=== PATIENT | female | born 1950 | race Caucasian/White ===

== ENCOUNTER → 2021-10-06 | Outpatient (CLI) | payer BC, OTHER ==
[2021-10-06 12:39] LABS: BASO # 0.1 10^3/uL (0.0-0.2); BASO % 1.1 % (0.0-1.0); EOS # 0.2 10^3/uL (0.0-0.5); EOS % 3.2 % (0.0-3.0); HEMATOCRIT 42.2 % (36.0-47.0); HEMOGLOBIN 13.2 g/dl (12.0-15.5); LYMPH # 1.7 10^3/uL (1.5-5.0); LYMPH % 29.6 % (24.0-44.0); MEAN CORPUSCULAR HEMOGLOBIN 28.9 pg (27.0-33.0); MEAN CORPUSCULAR HGB CONC 31.3 g/dl (32.0-36.5); MEAN CORPUSCULAR VOLUME 92.3 fl (80.0-96.0); MONO # 0.6 10^3/uL (0.0-0.8); NEUTROPHILS # 3.1 10^3/uL (1.5-8.5); NEUTROPHILS % 54.7 % (36.0-66.0); PLATELET COUNT, AUTOMATED 258 10^3/uL (150-450); RED BLOOD COUNT 4.57 10^6/uL (4.00-5.40); WHITE BLOOD COUNT 5.6 10^3/uL (4.0-10.0)
[2021-10-06 13:07] LABS: BLOOD UREA NITROGEN 17 MG/DL (7-18); CALCIUM LEVEL 9.7 MG/DL (8.8-10.2); CARBON DIOXIDE LEVEL 30 MEQ/L (21-32); CHLORIDE LEVEL 107 MEQ/L (98-107); CREATININE FOR GFR 0.46 MG/DL (0.55-1.30); GLOMERULAR FILTRATION RATE > 60.0 (>39); GLUCOSE, FASTING 91 MG/DL (70-100); POTASSIUM SERUM 3.9 MEQ/L (3.5-5.1); SODIUM LEVEL 143 MEQ/L (136-145)
== END ==
LOC: M WUC 09:10
PROVIDERS: ATTEND Podiatrist
DX: M20.12 Hallux valgus (acquired), left foot (principal); M79.672 Pain in left foot

== ENCOUNTER → 2021-10-25 | Outpatient (CLI) | payer MEDICARE, BC, OTHER ==
[~2021-10-25] MED LIST: ACET-907 PO; ATEN25TA PO; CALCCAP4 PO; EQL50TAB2 PO; HYDR-3490 PO; IBUP200C28 PO; MAGN400C2 PO; OCUV1CAP4 PO; VITA-243 PO; VITA100093 PO; VITMTA PO
== END ==
LOC: M LABSMTC 11:05
PROVIDERS: ATTEND Anesthesiology
DX: Z01.818 Encounter for other preprocedural examination (principal); Z11.52 Encounter for screening for COVID-19

== ENCOUNTER 2021-10-29 05:59 | Day surgery (SDC) | payer MEDICARE, BC, OTHER ==
[~2021-10-29] VITALS: Ht 167.6 cm; Wt 78.9 kg
[~2021-10-29 05:59] MED LIST changes: -ACET-907 PO
[2021-10-29] MEDS ORDERED: ceFAZolin SOD 2 GM in IV 1 EA IV ONE (06:00)
[2021-10-29] MEDS ORDERED: INSULIN LISPRO (NovoLOG) PER UNIT SC PRN (06:45)
[2021-10-29] MEDS ORDERED: LR 1,000 ML IV SCH (06:45)
[2021-10-29] MEDS ORDERED: propofoL 200 MG/20 ML VIAL As Ordered ONE ×5 (07:15→10:28)
[2021-10-29] MEDS ORDERED: fentaNYL 100 MCG/2 ML INJECTION As Ordered ONE (07:15)
[2021-10-29] MEDS ORDERED: BUPIVACAINE HCL 0.5% 30ML VIAL As Ordered ONE (07:15)
[2021-10-29] MEDS ORDERED: LIDOCAINE 2% MDV 20ML VIAL As Ordered ONE (07:15)
[2021-10-29] MEDS ORDERED: dexameTHASONE 4 MG/ML 1ML VIAL (J1100 PER 1MG) As Ordered ONE (07:15)
[2021-10-29] MEDS ORDERED: LIDOCAINE 2% 100MG/5ML SDV (FOR ANES.) As Ordered ONE (07:15)
[2021-10-29] MEDS ORDERED: GENTAMICIN SULF 80MG/2ML VIAL As Ordered ONE (07:15)
[2021-10-29] MEDS ORDERED: MIDAZOLAM INJ 2MG/2ML VIAL (J2250 PER 1MG) As Ordered ONE (07:15)
[2021-10-29] MEDS ORDERED: ONDANSETRON 4MG/2ML VIAL As Ordered ONE (07:15)
[2021-10-29] MEDS ORDERED: ACETAMINOPHEN 1000MG 100ML IV BTL (OFIRMEV) (J0131 PER 10MG) As Ordered ONE (07:50)
[2021-10-29] MEDS ORDERED: LIDOCAINE 1% SDV 30ML VIAL As Ordered ONE (08:00)
[2021-10-29] MEDS ORDERED: ePHEDrine SULFATE 25 MG/5 ML(5MG/ML) SYRINGE As Ordered ONE (08:12)
[2021-10-29] MEDS ORDERED: KETOROLAC 60MG 2ML VIAL As Ordered ONE (09:00)
[2021-10-29 12:28] VITALS: BP 140/66
[2021-11-09] MEDS ORDERED: ACET-907 PO (07:47)
== END 2021-10-29 12:50 | disposition home or self-care (01) ==
LOC: M SDC 05:59
PROVIDERS: ATTEND Podiatrist
DX: M20.12 Hallux valgus (acquired), left foot (principal); M79.672 Pain in left foot; I10 Essential (primary) hypertension; K21.9 Gastro-esophageal reflux disease without esophagitis; Z79.899 Other long term (current) drug therapy; Z91.013 Allergy to seafood
CPT/HCPCS: 28298; 73630; 76000; C1713; C1762; J0131; J0690; J1100; J1580; J1885; J2250; J2405; J3010

== ENCOUNTER → 2021-11-08 | Outpatient (CLI) | payer MEDICARE, BC, OTHER ==
[~2021-11-08] MED LIST changes: +ACET-907 PO
== END ==
LOC: M LABSMTC 09:29
PROVIDERS: ATTEND Podiatrist
DX: Z01.818 Encounter for other preprocedural examination (principal); Z11.52 Encounter for screening for COVID-19

== ENCOUNTER 2021-11-12 07:10 | Day surgery (SDC) | payer MEDICARE, BC, OTHER ==
[~2021-11-12] VITALS: Ht 167.6 cm; Wt 78.5 kg
[~2021-11-12 07:10] MED LIST changes: +ceFAZolin SOD 2 GM in IV 1 EA IV ONE
[2021-11-12] MEDS ORDERED: LR 1,000 ML IV SCH ×2 (07:55→11:30)
[2021-11-12] MEDS ORDERED: LIDOCAINE 2% INJ 100 MG/5 ML SYRINGE As Ordered ONE (08:30)
[2021-11-12] MEDS ORDERED: ONDANSETRON 4MG 2ML VIAL As Ordered ONE ×2 (08:30→08:34)
[2021-11-12] MEDS ORDERED: LIDOCAINE 2% 100MG/5ML SDV (FOR ANES.) As Ordered ONE ×2 (08:30→08:34)
[2021-11-12] MEDS ORDERED: propofoL 200 MG/20 ML VIAL As Ordered ONE ×2 (08:30→08:34)
[2021-11-12] MEDS ORDERED: MIDAZOLAM INJ 2MG/2ML VIAL (J2250 PER 1MG) As Ordered ONE (08:30)
[2021-11-12] MEDS ORDERED: fentaNYL 100 MCG/2 ML INJECTION As Ordered ONE (08:30)
[2021-11-12] MEDS ORDERED: dexameTHASONE 4 MG/ML 1ML VIAL (J1100 PER 1MG) As Ordered ONE ×3 (08:30→08:59)
[2021-11-12] MEDS ORDERED: GENTAMICIN SULF 80MG/2ML VIAL As Ordered ONE (08:58)
[2021-11-12] MEDS ORDERED: LIDOCAINE PRES-FREE 2% 10ML AMP As Ordered ONE (08:58)
[2021-11-12] MEDS ORDERED: BUPIVACAINE HCL 0.5% 30ML VIAL As Ordered ONE (08:59)
[2021-11-12] MEDS ORDERED: ePHEDrine SULFATE 25 MG/5 ML(5MG/ML) SYRINGE As Ordered ONE (09:33)
[2021-11-12] MEDS ORDERED: ACETAMINOPHEN 1000MG 100ML IV BTL (OFIRMEV) (J0131 PER 10MG) As Ordered ONE (10:00)
[2021-11-12] MEDS ORDERED: METOCLOPRAMIDE INJ 10MG/2ML VIAL (J2765 PER 1) IV PRN (11:30)
[2021-11-12] MEDS ORDERED: ONDANSETRON 4MG 2ML VIAL IV PRN (11:30)
[2021-11-12] MEDS ORDERED: INSULIN LISPRO (NovoLOG) PER UNIT SC PRN (11:30)
[2021-11-12] MEDS ORDERED: oxyCODONE 5MG TAB PO PRN (11:30)
[2021-11-12 12:45] VITALS: BP 147/67
== END 2021-11-12 15:42 | disposition home or self-care (01) ==
LOC: M SDC 07:10
PROVIDERS: ATTEND Podiatrist
DX: T84.223A Displacement of internal fixation device of bones of foot and toes, initial encounter (principal); Y79.2 Prosthetic and other implants, materials and accessory orthopedic devices associated with adverse incidents; M79.672 Pain in left foot; M20.12 Hallux valgus (acquired), left foot; I10 Essential (primary) hypertension; K21.9 Gastro-esophageal reflux disease without esophagitis; K27.9 Peptic ulcer, site unspecified, unspecified as acute or chronic, without hemorrhage or perforation; Z79.899 Other long term (current) drug therapy; Z79.891 Long term (current) use of opiate analgesic; Z87.891 Personal history of nicotine dependence; J30.1 Allergic rhinitis due to pollen; Z91.013 Allergy to seafood
CPT/HCPCS: 20680; 28740; 73630; 76000; 88300; C1713; C1762; J0131; J0690; J1100; J1580; J2250; J2405; J3010

== ENCOUNTER 2022-09-16 09:32 | Day surgery (SDC) | payer MEDICARE, BC, OTHER ==
[~2022-09-16] VITALS: Ht 167.6 cm; Wt 79.9 kg
[2022-09-16] MEDS ORDERED: LR 1,000 ML IV SCH (09:40)
[2022-09-16] MEDS ORDERED: propofoL 200 MG/20 ML VIAL As Ordered ONE (09:53)
[2022-09-16] MEDS ORDERED: LIDOCAINE 2% 100MG/5ML SDV (FOR ANES.) As Ordered ONE (09:53)
[2022-09-16] MEDS ORDERED: KETOROLAC 60MG 2ML VIAL As Ordered ONE (09:54)
[2022-09-16] MEDS ORDERED: ONDANSETRON 4MG 2ML VIAL As Ordered ONE (09:54)
[2022-09-16] MEDS ORDERED: MIDAZOLAM INJ 2MG/2ML VIAL As Ordered ONE (10:02)
[2022-09-16] MEDS ORDERED: fentaNYL 100 MCG/2 ML INJECTION As Ordered ONE ×2 (10:02→12:57)
[2022-09-16] MEDS ORDERED: ACETAMINOPHEN 1000MG 100ML IV BAG As Ordered ONE (10:14)
[2022-09-16] MEDS ORDERED: BUPIVACAINE HCL 0.5% 30ML VIAL As Ordered ONE (10:17)
[2022-09-16] MEDS ORDERED: GENTAMICIN SULF 80MG/2ML VIAL As Ordered ONE (10:17)
[2022-09-16] MEDS ORDERED: LIDOCAINE 2% MDV 20ML VIAL As Ordered ONE (10:17)
[2022-09-16 14:10] VITALS: BP 133/63
== END 2022-09-16 14:26 | disposition home or self-care (01) ==
LOC: M SDC 09:32
PROVIDERS: ATTEND Podiatrist
DX: M20.11 Hallux valgus (acquired), right foot (principal); M21.6X1 Other acquired deformities of right foot; M20.41 Other hammer toe(s) (acquired), right foot; I10 Essential (primary) hypertension; J44.9 Chronic obstructive pulmonary disease, unspecified; M19.90 Unspecified osteoarthritis, unspecified site; Z91.013 Allergy to seafood; Z79.899 Other long term (current) drug therapy
CPT/HCPCS: 28285; 28296; 73630; 76000; 88300; 97161; C1713; J0131; J0690; J1100; J1580; J1885; J2250; J2405; J3010

== ENCOUNTER → 2022-12-15 | Outpatient (REF) | payer MEDICARE, BC, OTHER ==
[~2022-12-15] MED LIST changes: -ceFAZolin SOD 2 GM in IV 1 EA IV ONE
== END ==
LOC: M LAB REF 17:09
PROVIDERS: ATTEND Podiatrist
DX: L03.129 Acute lymphangitis of unspecified part of limb (principal)